=== PATIENT | male | born 1960 | race Caucasian/White ===

== ENCOUNTER 2020-06-15 07:47 | Day surgery (SDC) | payer BC ==
[~2020-06-15] VITALS: Ht 190.5 cm; Wt 100.8 kg
[2020-06-15] MEDS ORDERED: normal saline 1000ml 1,000 ML IV SCH ×2 (08:20→10:55)
[2020-06-15] MEDS ORDERED: CARV6.253 PO (08:28)
[2020-06-15] MEDS ORDERED: BUSP5TAB3 PO (08:28)
[2020-06-15] MEDS ORDERED: LISI-604 PO (08:28)
[2020-06-15] MEDS ORDERED: ZINC (08:33)
[2020-06-15] MEDS ORDERED: ASCO-139 PO (08:33)
[2020-06-15] MEDS ORDERED: MV-M1TAB19 PO (08:33)
[2020-06-15] MEDS ORDERED: ADAL40PE SUBCUT (08:33)
[2020-06-15] MEDS ORDERED: ANTIBIOTIC (08:33)
[2020-06-15] MEDS ORDERED: MELATONIN (08:33)
[2020-06-15] MEDS ORDERED: OXAP600T4 PO (08:33)
[2020-06-15] MEDS ORDERED: NIAC10002 PO (08:33)
[2020-06-15 09:00] VITALS: BP 152/76
[2020-06-15] MEDS ORDERED: midazolam 2 mg/2 ml injection ONE ×2 (09:15→09:41)
[2020-06-15] MEDS ORDERED: LIDOcaine 1% W/epiNEPHrine 1:100,000 20ml vial ONE (09:15)
[2020-06-15 10:20] VITALS: BP 121/76
[2020-06-15 10:30] VITALS: BP 121/84
[2020-06-15 10:45] VITALS: BP 135/67
[2020-06-15] MEDS ORDERED: HYDROcodone/acetaminophen 5mg/325mg tablet PO PRN (10:55)
[2020-06-15] MEDS ORDERED: proCHLORperazine 10 MG/2 ml inj IV PRN (10:55)
[2020-06-15] MEDS ORDERED: ondansetron/PF 4mg/2ml inj IV PRN (10:55)
[2020-06-15] MEDS ORDERED: HYDROcodone/acetaminophen 10/325mg tab PO PRN (10:55)
[2020-06-15 11:00] VITALS: BP 132/74
[2020-06-15 11:30] VITALS: BP 130/88
== END 2020-06-15 12:00 | disposition home or self-care (01) ==
LOC: SSTAY O 07:47
PROVIDERS: ATTEND Internal Medicine Cardiovascular Disease
DX: Z45.09 Encounter for adjustment and management of other cardiac device (principal); F17.210 Nicotine dependence, cigarettes, uncomplicated; M06.9 Rheumatoid arthritis, unspecified; G47.30 Sleep apnea, unspecified; F41.9 Anxiety disorder, unspecified; F41.0 Panic disorder [episodic paroxysmal anxiety]; I42.9 Cardiomyopathy, unspecified; Z98.890 Other specified postprocedural states; Z79.899 Other long term (current) drug therapy; Z72.89 Other problems related to lifestyle; Z88.8 Allergy status to other drugs, medicaments and biological substances; Z87.11 Personal history of peptic ulcer disease
CPT/HCPCS: 33286; 93005; 99152; J2250; J7030; 99153; A4620; A5120; A6449